=== PATIENT | female | born 1950 | race African-American/Black ===

== ENCOUNTER 2024-06-25 11:37 | Inpatient (IN) | payer OTHER ==
[~2024-06-25] VITALS: Ht 165.1 cm; Wt 75.0 kg
[~2024-06-25 11:37] MED LIST: AMLO2.5T96 PO; ASPI-1450 PO; ATOR40TA71 PO; CARV3 PO; FAMO20 PO
[2024-06-25 12:38] LABS: COVID AG,FIA SOURCE NASAL SWAB
[2024-06-25 12:51] LABS: BASOPHILS % (AUTO) 0.8 % (0.0-2.0); EOSINOPHILS % (AUTO) 2.5 % (1.0-6.0); HEMATOCRIT 45.7 % (36-46); HEMOGLOBIN 15.2 g/dL (12.0-16.0); LYMPHOCYTES # (AUTO) 1.5 K/uL (1.0-4.8); LYMPHOCYTES % (AUTO) 36.7 % (22.0-44.0); MEAN CORPUSCULAR HEMOGLOBIN 28.2 pg (26.0-34.0); MEAN CORPUSCULAR HGB CONC 33.2 G/dL (31.0-37.0); MEAN CORPUSCULAR VOLUME 85 fL (80-100); MONOCYTES # (AUTO) 0.2 K/uL (0.1-1.0); MONOCYTES % (AUTO) 5.7 % (2.0-9.0); NEUTROPHILS # (AUTO) 2.2 K/uL (1.8-7.7); NEUTROPHILS % (AUTO) 54.3 % (40.0-70.0); PLATELET COUNT (AUTO) 167 K/uL (150-450); RED BLOOD CELL COUNT(AUTO) 5.38 MIL/uL (4.00-5.20); RED CELL DISTRIBUTION WIDTH 14.5 % (11.5-14.5); WHITE BLOOD COUNT (AUTO) 4.1 K/uL (4.5-11.0)
[2024-06-25 12:55] LABS: ANION GAP 9 mmol/L (8-16); CALCIUM, TOTAL 10.7 mg/dL (8.8-10.5); CARBON DIOXIDE 27 mmol/L (22-29); CHLORIDE 103 mmol/L (98-107); CREATININE 0.81 mg/dL (0.60-1.30); GLOMERULAR FILTR. RATE CALC > 60 mL/min (>60); GLUCOSE,RANDOM 92 mg/dL (70-110); POTASSIUM 4.2 mmol/L (3.5-5.1); SODIUM SERUM 139 mmol/L (136-145); UREA NITROGEN, BLOOD 11 mg/dL (7-18)
[2024-06-25 13:00] LABS: ALBUMIN 3.7 g/dL (3.4-5.0); BILIRUBIN,DIRECT 0.1 mg/dL (0.00-0.20); BILIRUBIN,TOTAL 0.6 mg/dL (0.1-1.0); TOTAL PROTEIN, SERUM 8.2 g/dL (6.4-8.2)
[2024-06-25 13:04] LABS: TROPONIN I-HIGH SENSITIVITY 4 ng/L (<51)
[2024-06-25 13:05] LABS: SARS-COV2 (COVID) ANTIGEN,FIA Negative (Negative)
[2024-06-25 13:06] LABS: INFLUENZA TYPE A NEGATIVE FOR TYPE A (NEGATIVE); INFLUENZA TYPE B NEGATIVE FOR TYPE B (NEGATIVE)
[2024-06-25 13:15] LABS: RAPID GROUP A STREP NEGATIVE (NEGATIVE)
[2024-06-25] MEDS ORDERED: SODIUM CHLORIDE 0.9% 100 ML ONE (13:16)
[2024-06-25] MEDS ORDERED: IOHEXOL 350 MG/ML 100 ML VIAL ONE (13:16)
[2024-06-25 13:17] LABS: B-TYPE NATRIURETIC PEPTIDE 7 pg/mL (0-100)
[2024-06-25 13:47] LABS: PLATELET MORPHOLOGY COMMENT GIANT PLTS PRESENT
[2024-06-25] MEDS: CefTRIAXone 1 GM/DEXTROSE 50 ML IV ONE (16:50)
[2024-06-25] MEDS: AZITHROMYCIN 500 MG/NS 250 ML IV ONE (16:50)
[2024-06-25] MEDS: ACETAMINOPHEN 325 MG TABLET PO ONE (18:50)
[2024-06-25] MEDS ORDERED: ACETAMINOPHEN 325 MG TABLET PO PRN (21:00)
[2024-06-25] MEDS ORDERED: NALOXONE HCL 1 MG/ML 2 ML SYRINGE IVP PRN (21:00)
[2024-06-25] MEDS ORDERED: MORPHINE SULFATE 2 MG/ML SYRINGE IVP PRN (21:00)
[2024-06-25] MEDS ORDERED: ONDANSETRON HCL 4 MG/2 ML VIAL IVP PRN (21:00)
[2024-06-25] MEDS: DOCUSATE SODIUM 100 MG CAPSULE PO SCH (21:00)
[2024-06-25 21:51] LABS: TROPONIN I-HIGH SENSITIVITY 4 ng/L (<51)
[2024-06-25 22:00] VITALS: BP 158/98; PULSE 77; RESP 19; TEMP 98.1; O2SAT 98
[2024-06-25] MEDS: ASPIRIN 81 MG CHEWABLE TABLET PO ONE (23:00)
[2024-06-25] MEDS: CARVEDILOL 6.25 MG TABLET PO SCH (23:00)
[2024-06-25] MEDS: HEPARIN SODIUM,PORCINE 5,000 UNITS/ML VIAL SQ SCH (23:11)
[2024-06-25] MEDS: SODIUM CHLORIDE 0.9% 500 ML IV ONE (23:16)
[2024-06-26 00:03] VITALS: BP 130/92; PULSE 99; RESP 17; TEMP 98.3; O2SAT 100
[2024-06-26 01:18] LABS: TROPONIN I-HIGH SENSITIVITY Less Than 4 ng/L (<51)
[2024-06-26 04:09] VITALS: BP 122/72; PULSE 64; RESP 16; TEMP 97.8; O2SAT 98
[2024-06-26 07:54] LABS: ANION GAP 7 mmol/L (8-16); CALCIUM, TOTAL 9.6 mg/dL (8.8-10.5); CARBON DIOXIDE 28 mmol/L (22-29); CHLORIDE 103 mmol/L (98-107); CREATININE 0.81 mg/dL (0.60-1.30); GLOMERULAR FILTR. RATE CALC > 60 mL/min (>60); GLUCOSE,RANDOM 107 mg/dL (70-110); POTASSIUM 4.2 mmol/L (3.5-5.1); SODIUM SERUM 138 mmol/L (136-145); UREA NITROGEN, BLOOD 12 mg/dL (7-18)
[2024-06-26 07:58] LABS: BASOPHILS % (AUTO) 0.3 % (0.0-2.0); EOSINOPHILS % (AUTO) 2.7 % (1.0-6.0); HEMATOCRIT 44.6 % (36-46); HEMOGLOBIN 14.7 g/dL (12.0-16.0); LYMPHOCYTES # (AUTO) 2.1 K/uL (1.0-4.8); LYMPHOCYTES % (AUTO) 50.4 % (22.0-44.0); MEAN CORPUSCULAR HEMOGLOBIN 28.2 pg (26.0-34.0); MEAN CORPUSCULAR VOLUME 85 fL (80-100); MONOCYTES # (AUTO) 0.3 K/uL (0.1-1.0); MONOCYTES % (AUTO) 6.5 % (2.0-9.0); NEUTROPHILS # (AUTO) 1.6 K/uL (1.8-7.7); NEUTROPHILS % (AUTO) 40.1 % (40.0-70.0); PLATELET COUNT (AUTO) 170 K/uL (150-450); RED BLOOD CELL COUNT(AUTO) 5.23 MIL/uL (4.00-5.20); RED CELL DISTRIBUTION WIDTH 14.5 % (11.5-14.5); WHITE BLOOD COUNT (AUTO) 4.1 K/uL (4.5-11.0)
[2024-06-26 08:28] VITALS: BP 138/78; PULSE 60; RESP 19; TEMP 97.5; O2SAT 97
[2024-06-26] MEDS ORDERED: SODIUM CHLORIDE 3% 15 ML NEB SOLUTION NEB ONE ×2 (10:51→20:16)
[2024-06-26 11:29] VITALS: BP 113/77; PULSE 64; RESP 19; TEMP 97.6; O2SAT 98
[2024-06-26 16:10] LABS: MTB PCR w/Rif. Resistance-SPUT NOT DETECTED (Not Detectd)
[2024-06-26 16:21] VITALS: BP 133/85; PULSE 62; RESP 19; TEMP 98.1; O2SAT 98
[2024-06-26 20:34] VITALS: BP 134/75; PULSE 81; RESP 19; TEMP 98.2; O2SAT 98
[2024-06-26] MEDS: ASPIRIN 81 MG CHEWABLE TABLET PO SCH (21:26)
[2024-06-27] VITALS (7 sets, daily range): BP systolic 108–148; BP diastolic 62–95; PULSE 65–73; RESP 18; TEMP 97.7–98; O2SAT 96–98
[2024-06-27] MEDS: CefTRIAXone 1 GM/DEXTROSE 50 ML IV SCH (06:51)
[2024-06-27] MEDS: AZITHROMYCIN 500 MG/NS 250 ML IV SCH (07:51)
[2024-06-27] MEDS: NITROGLYCERIN 0.4 MG SUBLINGUAL TABLET #25 SL PRN (08:51)
[2024-06-28] VITALS (8 sets, daily range): BP systolic 113–160; BP diastolic 61–95; PULSE 65–73; RESP 15–18; TEMP 97.6–98.1; O2SAT 95–99
[2024-06-28] MEDS: CefTRIAXone 1 GM/DEXTROSE 50 ML IV SCH (05:37)
[2024-06-28 07:23] LABS: BASOPHILS % (AUTO) 1.2 % (0.0-2.0); EOSINOPHILS % (AUTO) 2.4 % (1.0-6.0); HEMATOCRIT 41.3 % (36-46); HEMOGLOBIN 13.8 g/dL (12.0-16.0); LYMPHOCYTES # (AUTO) 2.3 K/uL (1.0-4.8); LYMPHOCYTES % (AUTO) 45.6 % (22.0-44.0); MEAN CORPUSCULAR HEMOGLOBIN 28.8 pg (26.0-34.0); MEAN CORPUSCULAR HGB CONC 33.4 G/dL (31.0-37.0); MEAN CORPUSCULAR VOLUME 86 fL (80-100); MONOCYTES # (AUTO) 0.3 K/uL (0.1-1.0); MONOCYTES % (AUTO) 6.8 % (2.0-9.0); NEUTROPHILS # (AUTO) 2.2 K/uL (1.8-7.7); PLATELET COUNT (AUTO) 154 K/uL (150-450); RED BLOOD CELL COUNT(AUTO) 4.79 MIL/uL (4.00-5.20); RED CELL DISTRIBUTION WIDTH 14.6 % (11.5-14.5); WHITE BLOOD COUNT (AUTO) 4.9 K/uL (4.5-11.0)
[2024-06-28 07:30] LABS: PLATELET MORPHOLOGY COMMENT GIANT PLTS PRESENT
[2024-06-28 07:46] LABS: ANION GAP 11 mmol/L (8-16); CALCIUM, TOTAL 9.1 mg/dL (8.8-10.5); CARBON DIOXIDE 21 mmol/L (22-29); CHLORIDE 105 mmol/L (98-107); CHOL/HDL RATIO 6.5 (3.9-5.7); CHOLESTEROL 235 mg/dL (131-200); CREATININE 0.78 mg/dL (0.60-1.30); GLOMERULAR FILTR. RATE CALC > 60 mL/min (>60); GLUCOSE,RANDOM 138 mg/dL (70-110); HDL CHOLESTEROL 36 mg/dL (40-60); POTASSIUM 4.1 mmol/L (3.5-5.1); SODIUM SERUM 137 mmol/L (136-145); TRIGLYCERIDES 569 mg/dL (15-150); UREA NITROGEN, BLOOD 16 mg/dL (7-18)
[2024-06-28 07:52] LABS: HEMOGLOBIN A1C 6.2 % (3.8-5.6)
[2024-06-28 07:57] LABS: TROPONIN I-HIGH SENSITIVITY Less Than 4 ng/L (<51)
[2024-06-28] MEDS: DOXYCYCLINE HYCLATE 100 MG TABLET PO SCH (08:31)
[2024-06-28] MEDS: ATORVASTATIN CALCIUM 40 MG TABLET PO SCH (08:31)
[2024-06-28 11:41] LABS: MTB PCR w/Rif. Resistance-SPUT NOT DETECTED (Not Detectd)
[2024-06-28] MEDS: EZETIMIBE 10 MG TABLET PO SCH (20:30)
[2024-06-29 04:25] VITALS: BP 139/93; PULSE 70; RESP 17; TEMP 97.8; O2SAT 98
[2024-06-29 08:30] VITALS: BP 141/77; PULSE 59; RESP 18; TEMP 97.9; O2SAT 100
[2024-06-29 12:05] VITALS: BP 137/76; PULSE 64; RESP 19; TEMP 98; O2SAT 99
[2024-06-29 15:46] VITALS: BP 139/74; PULSE 66; RESP 18; TEMP 98.1; O2SAT 98
[2024-06-29 20:19] VITALS: BP 138/77; PULSE 72; RESP 18; TEMP 98.2; O2SAT 96
[2024-06-29] MEDS: ATORVASTATIN CALCIUM 40 MG TABLET PO SCH (21:19)
[2024-06-30] VITALS: BP 138/63; PULSE 83; RESP 20; TEMP 97.5; O2SAT 97
[2024-06-30 02:07] LABS: HIV 1-2 SCREEN 4TH GEN W/RFLX Non Reactive (Non Reactive)
[2024-06-30 04:24] VITALS: BP 133/71; PULSE 83; RESP 18; TEMP 97.6; O2SAT 100
[2024-06-30 08:50] VITALS: BP 110/83; PULSE 76; RESP 19; TEMP 98.3; O2SAT 97
[2024-06-30 11:22] VITALS: BP 102/72; PULSE 79; RESP 18; TEMP 98.2; O2SAT 98
[2024-06-30 15:49] VITALS: BP 112/78; PULSE 74; RESP 18; TEMP 97.9; O2SAT 98
[2024-06-30 20:07] VITALS: BP 133/76; PULSE 84; RESP 20; TEMP 98.1; O2SAT 98
[2024-07-01 01:19] VITALS: BP 100/66; PULSE 86; RESP 18; TEMP 98.4; O2SAT 100
[2024-07-01 04:00] VITALS: BP 129/78; PULSE 72; RESP 20; TEMP 97.6; O2SAT 97
[2024-07-01 06:55] LABS: BASOPHILS % (AUTO) 1.3 % (0.0-2.0); EOSINOPHILS % (AUTO) 2.8 % (1.0-6.0); HEMATOCRIT 42.2 % (36-46); LYMPHOCYTES # (AUTO) 2.6 K/uL (1.0-4.8); LYMPHOCYTES % (AUTO) 43.9 % (22.0-44.0); MEAN CORPUSCULAR HEMOGLOBIN 28.3 pg (26.0-34.0); MEAN CORPUSCULAR HGB CONC 33.3 G/dL (31.0-37.0); MEAN CORPUSCULAR VOLUME 85 fL (80-100); MONOCYTES # (AUTO) 0.5 K/uL (0.1-1.0); MONOCYTES % (AUTO) 7.7 % (2.0-9.0); NEUTROPHILS # (AUTO) 2.6 K/uL (1.8-7.7); NEUTROPHILS % (AUTO) 44.3 % (40.0-70.0); PLATELET COUNT (AUTO) 180 K/uL (150-450); RED BLOOD CELL COUNT(AUTO) 4.96 MIL/uL (4.00-5.20); RED CELL DISTRIBUTION WIDTH 14.6 % (11.5-14.5)
[2024-07-01 07:05] LABS: ANION GAP 11 mmol/L (8-16); CALCIUM, TOTAL 9.3 mg/dL (8.8-10.5); CARBON DIOXIDE 23 mmol/L (22-29); CHLORIDE 102 mmol/L (98-107); GLOMERULAR FILTR. RATE CALC > 60 mL/min (>60); GLUCOSE,RANDOM 107 mg/dL (70-110); POTASSIUM 3.8 mmol/L (3.5-5.1); SODIUM SERUM 136 mmol/L (136-145); UREA NITROGEN, BLOOD 16 mg/dL (7-18)
[2024-07-01 08:32] VITALS: BP 124/60; PULSE 70; RESP 18; TEMP 97.8; O2SAT 98
[2024-07-01 08:39] LABS: PLATELET MORPHOLOGY COMMENT GIANT PLTS PRESENT
[2024-07-01 11:16] VITALS: BP 133/77; PULSE 74; RESP 18; TEMP 98.1; O2SAT 97
[2024-07-01 14:07] LABS: LEGIONELLA PNEUMO AG URINE Negative (Negative)
[2024-07-01] MEDS ORDERED: EZET10TA57 PO (14:56)
[2024-07-01] MEDS ORDERED: CARV6.2534 PO (14:56)
[2024-07-01 15:07] LABS: S PNEUMO SOURCE Urine; STREP PNEUMONIAE AG URINE Negative (Negative)
[2024-07-01 19:06] LABS: ANTI-PROTEINASE 3 (PR3) <0.2 units (0.0-0.9)
[2024-07-01 20:07] LABS: ATYPICAL P-ANCA AB <1:20 titer (Neg:<1:20); CYTOPLASMIC (C-ANCA) AB, IGG <1:20 titer (Neg:<1:20)
[2024-07-02 13:07] LABS: COCCI IGG TITER COMP.FIX-KERN <1:2; COCCIOIDES AB IGG (ID)-KERN Non Reactive; COCCIOIDES AB IGM (ID)-KERN Non Reactive
[2024-07-02 16:07] LABS: U HISTOPLASMA GALACTOMANNAN AG Negative (<0.2 ng/mL)
== END 2024-07-01 13:10 | disposition home or self-care (01) | DRG 137 ==
LOC: EMS 11:53 → EDH 20:37 → 5S 21:35
PROVIDERS: ADMIT Internal Medicine; ATTEND Internal Medicine
DX: A15.0 Tuberculosis of lung (principal); E11.9 Type 2 diabetes mellitus without complications; J15.69 Pneumonia due to other Gram-negative bacteria; E83.52 Hypercalcemia; Z20.822 Contact with and (suspected) exposure to COVID-19; E78.5 Hyperlipidemia, unspecified; I10 Essential (primary) hypertension; M25.512 Pain in left shoulder; R59.0 Localized enlarged lymph nodes; Z87.11 Personal history of peptic ulcer disease
CPT/HCPCS: 71046; 71260; 80048; 80061; 80076; 83036; 83516; 83735; 83880; 84145; 84484; 85025; 86038; 86171; 86256; 86403; 86480; 86738; 87015; 87040; 87070; 87206; 87305; 87385; 87389; 87430; 87449; 87556; 87804; 87899; 93005; 93306; 94640; 99285; J0456; J0696; J1644; J7050; 36415-L1; 36415-TC

== ENCOUNTER 2024-08-21 07:51 | Emergency (ER) | payer OTHER ==
[~2024-08-21] VITALS: Ht 170.2 cm; Wt 80.0 kg
[~2024-08-21 07:51] MED LIST changes: -ATOR40TA71 PO; -CARV3 PO; +CARV6.2534 PO; +EZET10TA57 PO
[2024-08-21 08:08] VITALS: TEMP 97.8
[2024-08-21 08:38] VITALS: BP 133/74; PULSE 60; RESP 16; O2SAT 96
[2024-08-21 08:43] LABS: BASOPHILS % (AUTO) 0.7 % (0.0-2.0); EOSINOPHILS % (AUTO) 1.6 % (1.0-6.0); HEMATOCRIT 43.7 % (36-46); HEMOGLOBIN 14.3 g/dL (12.0-16.0); LYMPHOCYTES # (AUTO) 1.3 K/uL (1.0-4.8); LYMPHOCYTES % (AUTO) 31.9 % (22.0-44.0); MEAN CORPUSCULAR HEMOGLOBIN 27.8 pg (26.0-34.0); MEAN CORPUSCULAR HGB CONC 32.7 G/dL (31.0-37.0); MEAN CORPUSCULAR VOLUME 85 fL (80-100); MONOCYTES # (AUTO) 0.2 K/uL (0.1-1.0); MONOCYTES % (AUTO) 5.6 % (2.0-9.0); NEUTROPHILS # (AUTO) 2.4 K/uL (1.8-7.7); NEUTROPHILS % (AUTO) 60.2 % (40.0-70.0); PLATELET COUNT (AUTO) 192 K/uL (150-450); RED BLOOD CELL COUNT(AUTO) 5.14 MIL/uL (4.00-5.20); RED CELL DISTRIBUTION WIDTH 14.4 % (11.5-14.5)
[2024-08-21 08:51] LABS: ANION GAP 8 mmol/L (8-16); CALCIUM, TOTAL 9.9 mg/dL (8.8-10.5); CARBON DIOXIDE 28 mmol/L (22-29); CHLORIDE 106 mmol/L (98-107); CREATININE 0.74 mg/dL (0.60-1.30); GLOMERULAR FILTR. RATE CALC > 60 mL/min (>60); GLUCOSE,RANDOM 95 mg/dL (70-110); POTASSIUM 4.4 mmol/L (3.5-5.1); SODIUM SERUM 142 mmol/L (136-145); UREA NITROGEN, BLOOD 9 mg/dL (7-18)
[2024-08-21] MEDS: OxyCODONE HCL/ACETAMINOPHEN 5-325 MG TABLET PO ONE (08:56)
[2024-08-21 09:00] LABS: CREATINE KINASE, TOTAL ONLY 81 U/L (26-192); TROPONIN I-HIGH SENSITIVITY 4 ng/L (<51)
[2024-08-21 09:04] LABS: PROTHROMBIN TIME 10.5 SEC (9.4-11.6)
[2024-08-21 09:19] LABS: B-TYPE NATRIURETIC PEPTIDE 15 pg/mL (0-100)
[2024-08-21] MEDS: SODIUM CHLORIDE 0.9% 250 ML IV ONE (09:38)
[2024-08-21] MEDS ORDERED: PERCT PO (09:44)
[2024-08-21] MEDS: ONDANSETRON HCL 4 MG/2 ML VIAL IVP ONE (09:54)
[2024-08-21] MEDS: MAG HYDROX/ALUMINUM HYD/SIMETH ES 30 ML SUSPENSION UDCUP PO ONE (10:09)
== END 2024-08-21 10:40 | disposition home or self-care (01) ==
LOC: EMS 07:52
DX: R53.1 Weakness (principal); R06.02 Shortness of breath; E11.9 Type 2 diabetes mellitus without complications; I10 Essential (primary) hypertension; Z79.82 Long term (current) use of aspirin; Z79.899 Other long term (current) drug therapy
CPT/HCPCS: 99285; 96374; 71045; 96361; 80048; 82550; 83880; 84484; 85025; 85610; 85730; 36415; 93005; J2405; J7030